=== PATIENT | female | born 1960 | race Caucasian/White ===

== ENCOUNTER 2017-10-22 01:40 | Emergency (ER) | payer OTHER ==
[~2017-10-22] VITALS: Ht 149.9 cm; Wt 53.1 kg
[2017-10-22 01:48] VITALS: Ht 149.9 cm; Wt 53.1 kg
[2017-10-22 07:12] VITALS: BP 143/89
== END 2017-10-22 07:12 | disposition short-term general hospital (02) ==
LOC: ED 01:40
DX: S52.121A Displaced fracture of head of right radius, initial encounter for closed fracture (principal); I10 Essential (primary) hypertension; E11.9 Type 2 diabetes mellitus without complications; Z88.8 Allergy status to other drugs, medicaments and biological substances; W01.0XXA Fall on same level from slipping, tripping and stumbling without subsequent striking against object, initial encounter; Y93.89 Activity, other specified; Y99.8 Other external cause status; Y92.098 Other place in other non-institutional residence as the place of occurrence of the external cause
CPT/HCPCS: 82962; J2001; J3490

== ENCOUNTER 2019-01-07 19:01 | Inpatient (IN) | payer OTHER ==
[~2019-01-07] VITALS: Ht 149.9 cm; Wt 46.3 kg
[~2019-01-07 19:01] MED LIST: ALOGLIPTIN12.5 MG PO
[2019-01-07 19:27] VITALS: Ht 149.9 cm; Wt 46.3 kg
[2019-01-07 21:42] LABS: BASOPHIL % 0.3 % (0-2); PLATELET COUNT 169 x10^3mcL (130-400); RED CELL DISTRIBUTION WIDTH 13.9 % (11.5-14.5)
[2019-01-07 21:49] LABS: CALCIUM 9.6 mg/dL (8.5-10.1); CARBON DIOXIDE 21.3 mmol/L (21-32); CHLORIDE SERUM 94 mmol/L (98-107); CREATININE SERUM 1.8 mg/dL (0.6-1.0); GFR1 31 mL/min; GLUCOSE SERUM 213 mg/dL (74-106); SODIUM SERUM 131 mmol/L (136-145)
[2019-01-07 21:54] LABS: ALBUMIN 2.8 g/dL (3.4-5.0); ALKALINE PHOSPHATASE 209 U/L (46-116); ALT/SGPT 56 U/L (14-59); AST/SGOT 74 U/L (15-37); BILIRUBIN TOTAL 7.02 mg/dL (0.20-1.00); TOTAL PROTEIN, SERUM 8.1 g/dL (6.4-8.2)
[2019-01-07 22:08] LABS: CK-MB 1.7 ng/mL (0-3.6)
[2019-01-07 23:06] LABS: microscopic required? YES; urine erythrocyte TRACE (NEGATIVE)
[2019-01-07] MEDS ORDERED: MAVYRET 100-401 EACH PO (23:58)
[2019-01-07] MEDS ORDERED: HYDROCHLOROTHIA25 MG PO (23:59)
[2019-01-07] MEDS ORDERED: METFORMIN HCL1000 MG PO (23:59)
[2019-01-08] MEDS ORDERED: BENAZEPRIL HYDR20 M1 PO
[2019-01-08] MEDS ORDERED: PANTOPRAZOLE SO40 M1 PO (00:01)
[2019-01-08 01:50] VITALS: BP 145/72
[2019-01-08 01:59] LABS: MAGNESIUM 1.7 mg/dL (1.8-2.4)
[2019-01-08 04:18] VITALS: BP 118/69
[2019-01-08 05:44] LABS: AMPHETAMINE QUAL UR NONE DETECTED (See below)
[2019-01-08 06:21] LABS: BASOPHIL % 0.1 % (0-2); PLATELET COUNT 156 x10^3mcL (130-400); RED CELL DISTRIBUTION WIDTH 13.9 % (11.5-14.5)
[2019-01-08 07:13] LABS: CALCIUM 8.9 mg/dL (8.5-10.1); CARBON DIOXIDE 22.9 mmol/L (21-32); CREATININE SERUM 1.3 mg/dL (0.6-1.0); MAGNESIUM 1.7 mg/dL (1.8-2.4); PHOSPHOROUS 4.4 mg/dL (2.5-4.9); POTASSIUM SERUM 4.8 mmol/L (3.5-5.1)
[2019-01-08 08:03] VITALS: BP 118/71
[2019-01-08 11:42] VITALS: BP 145/77
[2019-01-08 17:09] LABS: APPEARANCE FLUID CLEAR; COLOR FLUID YELLOW; RBC FLUID 87 /cumm; SOURCE FLUID ASCITES; WBC FLUID 103 /cumm
[2019-01-08 17:22] LABS: LYMPHOCYTE FLUID 74 %; MONOCYTE FLUID 16 %
[2019-01-08 18:21] VITALS: BP 119/63
[2019-01-08 21:01] VITALS: BP 92/55
[2019-01-09 06:17] VITALS: BP 113/62
[2019-01-09 06:44] LABS: BASOPHIL % 0.2 % (0-2); PLATELET COUNT 134 x10^3mcL (130-400)
[2019-01-09 07:14] LABS: CALCIUM 8.3 mg/dL (8.5-10.1); CARBON DIOXIDE 29.1 mmol/L (21-32); CREATININE SERUM 1.4 mg/dL (0.6-1.0); POTASSIUM SERUM 3.3 mmol/L (3.5-5.1)
[2019-01-09 08:30] VITALS: BP 111/73
[2019-01-09 13:12] VITALS: BP 95/40
[2019-01-09 16:05] VITALS: BP 92/58
[2019-01-09 18:30] VITALS: BP 98/70
[2019-01-09 21:03] VITALS: BP 104/56
[2019-01-10 05:46] VITALS: BP 96/56
[2019-01-10 06:13] LABS: BASOPHIL % 0.4 % (0-2); PLATELET COUNT 139 x10^3mcL (130-400); RED CELL DISTRIBUTION WIDTH 13.9 % (11.5-14.5)
[2019-01-10 06:29] LABS: CALCIUM 8.2 mg/dL (8.5-10.1); CARBON DIOXIDE 27.7 mmol/L (21-32); CREATININE SERUM 1.3 mg/dL (0.6-1.0)
[2019-01-10 09:48] VITALS: BP 97/58
[2019-01-10 17:48] VITALS: BP 101/71
[2019-01-10 21:16] VITALS: BP 111/61
[2019-01-11 06:02] VITALS: BP 107/64
[2019-01-11 06:06] LABS: BASOPHIL % 0.5 % (0-2); PLATELET COUNT 144 x10^3mcL (130-400); RED CELL DISTRIBUTION WIDTH 13.7 % (11.5-14.5)
[2019-01-11 06:36] LABS: CALCIUM 8.6 mg/dL (8.5-10.1); CARBON DIOXIDE 25.5 mmol/L (21-32); CREATININE SERUM 1.2 mg/dL (0.6-1.0); MAGNESIUM 1.8 mg/dL (1.8-2.4); PHOSPHOROUS 3.6 mg/dL (2.5-4.9); POTASSIUM SERUM 4.4 mmol/L (3.5-5.1)
[2019-01-11 09:26] VITALS: BP 116/68
[2019-01-11 13:41] LABS: BILIRUBIN DIRECT 2.91 mg/dL (0.0-0.2); BILIRUBIN TOTAL 3.3 mg/dL (0.20-1.00)
[2019-01-11 13:53] LABS: ALBUMIN 2.3 g/dL (3.4-5.0)
[2019-01-11 16:25] VITALS: BP 138/78
[2019-01-11 21:05] VITALS: BP 115/66
[2019-01-12 06:20] LABS: BASOPHIL % 0.4 % (0-2); PLATELET COUNT 162 x10^3mcL (130-400); RED CELL DISTRIBUTION WIDTH 14.1 % (11.5-14.5)
[2019-01-12 06:45] VITALS: BP 106/61
[2019-01-12 07:39] LABS: CALCIUM 8.6 mg/dL (8.5-10.1); CARBON DIOXIDE 26.4 mmol/L (21-32); CHLORIDE SERUM 100 mmol/L (98-107); CREATININE SERUM 0.9 mg/dL (0.6-1.0); GFR1 > 60 mL/min; GLUCOSE SERUM 134 mg/dL (74-106); POTASSIUM SERUM 4.1 mmol/L (3.5-5.1); SODIUM SERUM 135 mmol/L (136-145)
[2019-01-12 08:47] VITALS: BP 127/77
[2019-01-12 17:26] VITALS: BP 114/61
[2019-01-12 19:37] VITALS: BP 114/59
[2019-01-13 05:44] VITALS: BP 105/60
[2019-01-13 06:41] LABS: CALCIUM 8.6 mg/dL (8.5-10.1); CARBON DIOXIDE 28.3 mmol/L (21-32); CHLORIDE SERUM 100 mmol/L (98-107); GFR1 > 60 mL/min; GLUCOSE SERUM 110 mg/dL (74-106); POTASSIUM SERUM 4.8 mmol/L (3.5-5.1); SODIUM SERUM 134 mmol/L (136-145)
[2019-01-13 07:19] LABS: BASOPHIL % 0.7 % (0-2); PLATELET COUNT 155 x10^3mcL (130-400); RED CELL DISTRIBUTION WIDTH 14.2 % (11.5-14.5)
[2019-01-13 12:53] VITALS: BP 102/58
[2019-01-13 16:52] VITALS: BP 97/53
[2019-01-13 17:30] VITALS: BP 95/47
[2019-01-14 04:42] VITALS: BP 129/69
[2019-01-14 06:56] LABS: BASOPHIL % 0.4 % (0-2); PLATELET COUNT 151 x10^3mcL (130-400); RED CELL DISTRIBUTION WIDTH 13.9 % (11.5-14.5)
[2019-01-14 07:00] LABS: CALCIUM 8.5 mg/dL (8.5-10.1); CARBON DIOXIDE 28.7 mmol/L (21-32); CHLORIDE SERUM 101 mmol/L (98-107); CREATININE SERUM 0.9 mg/dL (0.6-1.0); GFR1 > 60 mL/min; GLUCOSE SERUM 143 mg/dL (74-106); POTASSIUM SERUM 4.4 mmol/L (3.5-5.1); SODIUM SERUM 135 mmol/L (136-145)
[2019-01-14 08:26] VITALS: BP 108/64
[2019-01-14 09:20] VITALS: BP 117/68
[2019-01-14] MEDS ORDERED: LEVAQUIN500 M1 PO ×2 (10:43→10:51)
[2019-01-14] MEDS ORDERED: PROPRANOLOL HCL20 MG PO (10:51)
[2019-01-14] MEDS ORDERED: SPIRONOLACTONE25 MG PO (10:51)
[2019-01-14] MEDS ORDERED: LACTULOSE10 GM/152 PO (10:52)
[2019-01-14 11:02] VITALS: BP 117/68
[2019-01-14] MEDS ORDERED: NORCO1 TA2 PO (13:17)
[2019-01-14 13:42] VITALS: BP 112/69
== END 2019-01-14 14:29 | disposition home or self-care (01) ==
LOC: ED 19:01 → DU 23:25 → MU 23:25 → DU 01-08 01:28 → MU 01-09 15:04
PROVIDERS: Emergency Medicine; Family Medicine; Internal Medicine Gastroenterology; ADMIT Internal Medicine
PROC: 0W9G3ZZ Drainage of Peritoneal Cavity, Percutaneous Approach (ICD-10-PCS; principal; 2019-01-08)
PROC: 0DB98ZX Excision of Duodenum, Via Natural or Artificial Opening Endoscopic, Diagnostic (ICD-10-PCS; 2019-01-11 11:30)
PROC: 06L38CZ Occlusion of Esophageal Vein with Extraluminal Device, Via Natural or Artificial Opening Endoscopic (ICD-10-PCS; 2019-01-11 11:30)
DX: K74.60 Unspecified cirrhosis of liver (principal); N17.0 Acute kidney failure with tubular necrosis; E43 Unspecified severe protein-calorie malnutrition; E87.2 Acidosis; K76.6 Portal hypertension; I85.10 Secondary esophageal varices without bleeding; E87.1 Hypo-osmolality and hyponatremia; K26.9 Duodenal ulcer, unspecified as acute or chronic, without hemorrhage or perforation; R18.8 Other ascites; I10 Essential (primary) hypertension; K31.4 Gastric diverticulum; K25.9 Gastric ulcer, unspecified as acute or chronic, without hemorrhage or perforation; B96.1 Klebsiella pneumoniae [K. pneumoniae] as the cause of diseases classified elsewhere; B19.20 Unspecified viral hepatitis C without hepatic coma; K57.30 Diverticulosis of large intestine without perforation or abscess without bleeding; E11.9 Type 2 diabetes mellitus without complications; E80.6 Other disorders of bilirubin metabolism; N39.0 Urinary tract infection, site not specified; F41.9 Anxiety disorder, unspecified; Z68.21 Body mass index [BMI] 21.0-21.9, adult; Z88.6 Allergy status to analgesic agent; Z90.49 Acquired absence of other specified parts of digestive tract; Z90.710 Acquired absence of both cervix and uterus; Z79.899 Other long term (current) drug therapy
CPT/HCPCS: 43235; 49083; 82962; 83880; C1729; C1769; J0696; J1200; J1610; J1885; J1940; J2250; J2270; J2310; J2405; J3010; J3370; J3475; J3490; J7030; J7040; J7060; Q0092